=== PATIENT | female | born 1950 | race African-American/Black ===

== ENCOUNTER → 2018-12-10 | Outpatient (CLI) | payer MEDICARE, OTHER ==
[~2018-12-10] MED LIST: ALPRAZOLAM 0.0.25 M1 PO; BAYER CHEWABLE81 MG PO; BUSPIRONE HCL5 MG PO; CARVEDILOL3.125 MG PO; CLIMARA1 EAC2 TD; COLACE100 MG PO; COZAAR100 MG PO; GABAPENTIN 100100 MG PO; GLYBURID-METFO1 EAC3; HYDROCODON-ACE1 EAC5 PO; JANUMET 50-1,01 EACH PO; LANTUS; LANTUSSOLASTAR SUBQ; LIPITOR10 MG PO; MACROBID 100 M100 M1 PO; NORCO 10-325 T1 EACH PO; NORCO 5-325 TA1 EACH PO; NORFLEX100 MG PO; NORTRIPTYLINE H25 M3 PO; OMEGA-31000 M2 PO; OMEPRAZOLE20 MG PO; TIZANIDINE HCL4 MG PO; VITAMIN D-32000 UNIT PO; VITAMIN D3400 UNIT PO; ZYRTEC10 MG PO; [UNRECOGNIZED DRUG - OTHER]
--- NOTE | 2018-12-13 08:40 | P ---
[facility] [place] [address] [place] [address] PROCEDURE REPORT Name: CELESTINO LIU Room #: REG [facility]#: [id number] Admission: 12/10/18 ������������������ Attend Phys: Denny Donaldson Discharge: ������������������ Date of : 46 Report #: [id number] THIS REPORT FOR: //name// CC: Denny Pearce DATE OF SERVICE: 12/10/2018 PROCEDURE PERFORMED: Upper endoscopy with biopsies. HISTORY OF PRESENT ILLNESS: The patient is a 68-year-old female last seen by myself in 11/2017. At that time, he was being evaluated for anemia and Hemoccult positive stool. She had undergone an EGD and colonoscopy in 01/2017, which was essentially normal. At the time, an M2 capsule was then performed and was normal. She does have a history of chronic constipation, recently has been having increased lower intermittent abdominal pain. She denies any heartburn or reflux. She is not on any antacid therapy. Denies any dysphagia. She does take aspirin on a regular basis, which has been held for several days prior to the procedure. Plan is for EGD. DESCRIPTION OF PROCEDURE: The risks and benefits of the procedure were explained to the patient, those risks including but not limited to bleeding, perforation and the risk of sedation. She understood these risks and gave informed consent. Sedation was given using propofol per anesthesia. Next, using a standard Olympus upper endoscope, the scope was placed in the patient's mouth and advanced under direct vision through the esophagus, stomach and into the second portion of the duodenum. The larynx was normal in appearance. The upper and mid esophagus was normal in appearance. In the distal esophagus, grade A erosive esophagitis was noted. Overall, the gastric mucosa was normal in the fundus and body; however, in the gastric antrum, a mild gastritis was noted with several erosions and a single clean white-based linear ulcer. No evidence of bleeding. Biopsies were obtained to rule out H. pylori. The pylorus was normal and patent. The duodenal bulb, first and second portion were all normal. The scope was then withdrawn and the procedure terminated. The patient tolerated the procedure well. IMPRESSION: 1. Gastritis with several small antral erosions and a single ulcer, no bleeding. 2. Grade A erosive esophagitis. 3. Otherwise, normal upper endoscopy. RECOMMENDATIONS: 1. Await biopsy results. 2. Would recommend long-term PPI therapy, especially as the patient is on [address] [address] PROCEDURE REPORT Name: CELESTINO LIU Room #: REG [facility]#: [id number] Admission: 12/10/18 ������������������ Attend Phys: Denny Donaldson Discharge: ������������������ Date of : 46 Report #: [id number] long-term aspirin therapy. 3. Etiology of abdominal pain may be secondary to gastric ulcer and esophagitis; however, she is having low pain as well as constipation, which I think is also playing a role. She does report some improvement in her pain after a bowel movement. I would recommend a trial of daily MiraLax, which she has not tried as of yet. If this is not helpful, consider Michael. Of note, the patient also had an ultrasound of the abdomen on 10/07/2018, was essentially normal. Thank you for allowing me to participate in her care. ��������������������������������������������� <ELECTRONICALLY SIGNED> ���������������������������������������� By: Denny Esparza MD ��������������������������������������������� 12/13/18 0840 [id number] [id number] Denny Esparza MD /nt
--- NOTE | 2018-12-14 13:08 | PATH ---
[facility] [address] [place] [address] PATHOLOGY RPT PROCEDURE Name: CELESTINO LIU Room #: REG [facility] Rojas.#: [id number] ������������������ Admission: 12/10/18 ������������������ Date of : 46 Discharge: Report #: [id number] Path Case #: [id number] [facility] Accession Number: [id number] . 01 Material submitted: . BIOPSY GASTRITIS/GASTRIC ULCER R/O H PYLORI . 01 Clinical history: . Pre-OP DX: Abdominal pain Post-OP DX: Gastric ulcer, gastritis . 02 Diagnosis: Gastric mucosa, gastritis/gastric ulcer R/O H. pylori, endoscopic biopsy: - Moderate reactive gastropathy. - Negative for intestinal metaplasia or atrophy. - Negative for Helicobacter pylori (properly controlled immunohistochemical stain performed. (IUV:chinyere; 12/13/2018) QMS/12/13/2018 . 02 Electronically signed: . Joy Wetzel MD, Pathologist NPI- [id number] . 01 Gross description: . Received in formalin labeled "Celestino Liu, BX gastritis/ gastric ulcer, rule out H. pylori," are 3 segments of singleton soft tissue measuring 0.9 x 0.8 x 0.2 cm in aggregate dimensions and ranging from 0.5 to 0.8 cm in maximum dimension. The specimen is submitted entirely in cassette A1. (TSD; 12/10/2018) TOB/TOB . 02 Pathologist provided ICD-10: K31.9 . 02 CPT . 218488, Q42898 Specimen Comment: A courtesy copy of this report has been sent to Specimen Comment: [phone], . Specimen Comment: Report sent to / DR PETERSEN Performed at: [address] [id number] MD Ronal Soni MD Phone: [phone] Performed at: [address] [id number] [address] [address] PATHOLOGY RPT PROCEDURE Name: CELESTINO LIU Room #: REG [facility]#: [id number] ������������������ Admission: 12/10/18 ������������������ Date of : 46 Discharge: Report #: [id number] Path Case #: [id number] MD Joy Wetzel MD Phone: [phone]
== END | disposition home or self-care (01) ==
LOC: GI 07:12
DX: K31.9 Disease of stomach and duodenum, unspecified (principal); K22.10 Ulcer of esophagus without bleeding; Z88.0 Allergy status to penicillin; Z79.899 Other long term (current) drug therapy; Z79.4 Long term (current) use of insulin; Z98.890 Other specified postprocedural states
CPT/HCPCS: 62110; 62900

== ENCOUNTER → 2019-11-23 | Outpatient (CLI) | payer MEDICARE, OTHER ==
[~2019-11-23] VITALS: Ht 157.5 cm; Wt 74.0 kg
[~2019-11-23] MED LIST changes: +SIMBRINZA 1%-0.28 ML
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
[2019-11-23 12:53] VITALS: BP 158/64
--- NOTE | 2019-11-23 13:13 | NUR ---
Pain Clinic Assessment: 1. History of Osteoarthritis: Not Applicable History of Rheumatoid Arthritis: Not Applicable 2. Height: 5 ft. 2 in. 157.5 cm. Weight: 163.2 lb. oz. 74.027 kg. Patient's BMI: 29.8 3. Vital Signs: BP: 158/64 Pulse: 89 Resp: 18 Temp: 02 Sat: 97 ECG Mon: 4. Pain Intensity: 5-6 5. Fall Risk: Dizziness: N Needs help standing or walking: N Fallen in the last 3 months: N Fall risk comments: 6. Patient on Blood Thinner: None 7. History of Hypertension: Y 8. Opioid Therapy greater than 6 weeks: N Opiate Contract Signed: 9. Risk Assessment Tool Provided: 1-LOW RISK 10. Functional Assessment Tool: 11. Recreational Drug Use: Never Drug Type: Tobacco Use: Never Smoker Tobacco Type: Amount or Packs/day: How Many Years: Alcohol Use: No Frequency: Quant:
== END ==
LOC: PAIN 06:44
DX: M54.17 Radiculopathy, lumbosacral region (principal); G89.29 Other chronic pain; E11.9 Type 2 diabetes mellitus without complications; I10 Essential (primary) hypertension; E78.5 Hyperlipidemia, unspecified; Z98.890 Other specified postprocedural states; Z88.8 Allergy status to other drugs, medicaments and biological substances; Z88.0 Allergy status to penicillin; Z79.899 Other long term (current) drug therapy

== ENCOUNTER → 2019-11-30 | Outpatient (CLI) | payer MEDICARE, OTHER ==
[~2019-11-30] VITALS: Ht 157.5 cm; Wt 73.5 kg
[2019-11-30 09:11] VITALS: BP 163/65
--- NOTE | 2019-11-30 09:15 | NUR ---
Pain Clinic Assessment: 1. History of Osteoarthritis: Not Applicable History of Rheumatoid Arthritis: Not Applicable 2. Height: 5 ft. 2 in. 157.5 cm. Weight: 162.0 lb. oz. 73.483 kg. Patient's BMI: 29.6 3. Vital Signs: BP: 163/65 Pulse: 79 Resp: 16 Temp: 02 Sat: 99 ECG Mon: 4. Pain Intensity: 6-7 5. Fall Risk: Dizziness: N Needs help standing or walking: N Fallen in the last 3 months: N Fall risk comments: 6. Patient on Blood Thinner: None 7. History of Hypertension: Y 8. Opioid Therapy greater than 6 weeks: N Opiate Contract Signed: 9. Risk Assessment Tool Provided: 1-LOW RISK 10. Functional Assessment Tool: 11. Recreational Drug Use: Never Drug Type: Tobacco Use: Never Smoker Tobacco Type: Amount or Packs/day: How Many Years: Alcohol Use: No Frequency: Quant:
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
== END | disposition home or self-care (01) ==
LOC: PAIN 06:40
DX: M54.16 Radiculopathy, lumbar region (principal); I10 Essential (primary) hypertension; E11.9 Type 2 diabetes mellitus without complications; G89.29 Other chronic pain; E78.5 Hyperlipidemia, unspecified; Z79.899 Other long term (current) drug therapy; Z98.890 Other specified postprocedural states; Z88.8 Allergy status to other drugs, medicaments and biological substances

== ENCOUNTER → 2020-02-17 | Outpatient (CLI) | payer MEDICARE ==
[~2020-02-17] VITALS: Ht 157.5 cm; Wt 74.4 kg
[2020-02-17 11:04] VITALS: BP 168/72
--- NOTE | 2020-02-17 11:08 | NUR ---
Pain Clinic Assessment: 1. History of Osteoarthritis: Not Applicable History of Rheumatoid Arthritis: Not Applicable 2. Height: 5 ft. 2 in. 157.5 cm. Weight: 164.0 lb. oz. 74.390 kg. Patient's BMI: 30.0 3. Vital Signs: BP: 168/72 Pulse: 79 Resp: 14 Temp: 02 Sat: 100 ECG Mon: 4. Pain Intensity: 8 5. Fall Risk: Dizziness: N Needs help standing or walking: N Fallen in the last 3 months: N Fall risk comments: 6. Patient on Blood Thinner: None 7. History of Hypertension: Y 8. Opioid Therapy greater than 6 weeks: N Opiate Contract Signed: 9. Risk Assessment Tool Provided: 1-LOW RISK 10. Functional Assessment Tool: 11. Recreational Drug Use: Never Drug Type: Tobacco Use: Never Smoker Tobacco Type: Amount or Packs/day: How Many Years: Alcohol Use: No Frequency: Quant:
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
== END | disposition home or self-care (01) ==
LOC: PAIN 06:50
PROVIDERS: ATTEND Anesthesiology Pain Medicine
DX: M54.16 Radiculopathy, lumbar region (principal); G89.29 Other chronic pain; Z79.899 Other long term (current) drug therapy; Z98.890 Other specified postprocedural states; Z88.0 Allergy status to penicillin

== ENCOUNTER → 2020-06-08 | Outpatient (CLI) | payer MEDICARE ==
[~2020-06-08] VITALS: Ht 157.5 cm; Wt 74.1 kg
--- NOTE | ~2020-06-08 | HPC ---
[facility] [address] [place] [address] PAIN MANAGEMENT CONSULTATION Name: CELESTINO LIU Room #: REG [facility].#: [id number] Admission: 06/08/20 Attend Phys: Black Anderson MD Discharge: Date of : 46 Report #: [id number] CC: Karen Anderson DATE OF SERVICE: 06/08/2020 CHIEF COMPLAINT: Low back and left leg pain. HISTORY: The patient is a 69-year-old female who has been seen in the pain clinic in the past because of lumbar radiculopathy. She is experiencing a recurrence of pain and discomfort across her back. It involves her left lower back and abdominal area. Notes that pain can be more problematic with lifting and other activities. She has been more active cleaning out closets under beds as well as doing yard work. She would like to proceed with another epidural steroid injection given that they have been beneficial in the past. ALLERGIES: PENICILLIN AND LISINOPRIL. CURRENT MEDICATIONS: Simbrinza 1% eyedrops, vitamin D3, Coreg 1.325 mg b.i.d., buspirone 5 mg b.i.d., Janumet 50/100, gabapentin 100 mg t.i.d., omega-3 1000 mg, Zyrtec 10 mg; insulin 100 units as directed, 20 units at bedtime; [place] 10 mg, Lipitor 10 mg, losartan 100 mg. PAIN CLINIC ASSESSMENT/PQRS: 1. The patient is complaining of some arthritic changes in her sacrum status post spur removal. 2. The patient is not being treated for rheumatoid arthritis. 3. Height 5 feet 2 inches, weight 163 pounds, BMI is 29.9. 4. Vital signs: Blood pressure is 125/78, pulse 81, respiratory rate 16, room air saturation 100%. 5. Pain intensity 8/10. 6. Fall history: The patient has not fallen in the last 3 months. 7. Blood thinner: The patient is not on a blood thinning medication. 8. Hypertension: The patient is being treated for hypertension. 9. Opioids greater than 6 weeks: The patient received medication from her primary. 10. Risk assessment tool: Low for opioid use. 11. Functional assessment tool . 12. Recreational drug use: The patient denies. 13. Tobacco: The patient has never smoked. 14. Alcohol: The patient denies frequent use of alcoholic beverages. PHYSICAL EXAMINATION: GENERAL: The patient is a well-developed, well-nourished black female, appears her stated age. She is alert and oriented x 3. Her affect is appropriate. Speech is fluent. HEENT: Normocephalic, atraumatic. Extraocular eye muscles intact. Sclerae nonicteric. Mucous membranes are moist. The patient is wearing a facial covering. NECK: Without adenopathy or JVD. The patient has some discomfort in her left shoulder. HEART: Regular rate. ABDOMEN: Nontender. EXTREMITIES: Upper extremity muscle strength judged to be 5-/5 for the major muscle groups in the upper extremity. The patient has some pain and discomfort in lower portion of her back as well as well-healed scar in the lower portion of her back. Forward bending causes some increased pain. The patient has a positive straight leg raise. Has some limitation and bending. Has pain radiating down to left buttocks and into the L5-S1 area involving her foot. IMPRESSION: 1. Lumbar radiculopathy in L5-S1 dermatomal distribution. 2. Type 2 diabetes. 3. Hypertension. 4. Chronic low back pain. 5. Internal hemorrhoids. 6. Hyperlipidemia. 7. Depression. RECOMMENDATIONS: We discussed treatment options with the patient. Risks and benefits of an epidural steroid injection were again discussed. They include but are not limited to infection, worsening of pain, no improvement in pain, nerve damage, bleeding. We also discussed the COVID-19 pandemic. Steroids can decrease one's immune reaction. Should the patient become infected, she may have a more difficult time with the virus. She elects to proceed. PROCEDURE NOTE: The patient was taken to the procedure area. She was then assisted in getting on the examination table. Her back was sterilely prepped with a Betadine solution. A 0.25% bupivacaine was infiltrated. A 17-gauge Tuohy with loss of resistance technique was used to gain access at the L5-S1 area. There was no CSF, heme or paresthesia. Fluoroscopy was used to confirm appropriate placement. Total of 80 mg Depo-Medrol, 40 mg triamcinolone and 2 mL of 0.25% bupivacaine was injected. The patient will monitor her blood glucose level. We would like to thank you for letting us participate in her care. We hope she continues to improve. By: [id number] Black Anderson MD /[facility]
[2020-06-08 08:41] VITALS: BP 154/78
--- NOTE | 2020-06-08 08:48 | NUR ---
Pain Clinic Assessment: 1. History of Osteoarthritis: Not Applicable History of Rheumatoid Arthritis: Not Applicable 2. Height: 5 ft. 2 in. 157.5 cm. Weight: 163.4 lb. oz. 74.118 kg. Patient's BMI: 29.9 3. Vital Signs: BP: 154/78 Pulse: 81 Resp: 16 Temp: 02 Sat: 100 ECG Mon: 4. Pain Intensity: 8 5. Fall Risk: Dizziness: N Needs help standing or walking: N Fallen in the last 3 months: N Fall risk comments: 6. Patient on Blood Thinner: None 7. History of Hypertension: Y 8. Opioid Therapy greater than 6 weeks: N Opiate Contract Signed: 9. Risk Assessment Tool Provided: 1-LOW RISK 10. Functional Assessment Tool: 11. Recreational Drug Use: Never Drug Type: Tobacco Use: Never Smoker Tobacco Type: Amount or Packs/day: How Many Years: Alcohol Use: No Frequency: Quant:
== END | disposition home or self-care (01) ==
LOC: PAIN 06-05 12:49
PROVIDERS: ATTEND Anesthesiology Pain Medicine
DX: M54.16 Radiculopathy, lumbar region (principal); G89.29 Other chronic pain; I10 Essential (primary) hypertension; E11.9 Type 2 diabetes mellitus without complications; E78.5 Hyperlipidemia, unspecified; F32.9 Major depressive disorder, single episode, unspecified; Z88.0 Allergy status to penicillin; Z88.8 Allergy status to other drugs, medicaments and biological substances; Z79.899 Other long term (current) drug therapy; Z98.890 Other specified postprocedural states